=== PATIENT | male | born 1985 | race Caucasian/White ===

== ENCOUNTER 2020-09-04 10:47 | Emergency (ER) | payer OTHER ==
[~2020-09-04] VITALS: Ht 182.9 cm; Wt 74.8 kg
[2020-09-04] MEDS ORDERED: CELEXA10 MG PO (11:03)
[2020-09-04 11:18] LABS: ABSOLUTE BASOPHILS 0.1 thou/uL (0.0-0.2); ABSOLUTE LYMPHOCYTES 1.6 thou/uL (0.8-5.3); ABSOLUTE MONOCYTES 0.4 thou/uL (0.0-1.2); ABSOLUTE NEUTROPHILS 9.3 thou/uL (1.6-8.1); BASOPHILS 0.6 %; EOSINOPHILS 0.2 %; HEMATOCRIT 47.9 % (42.0-52.0); HEMOGLOBIN 16.7 gm/dL (14.0-18.0); LYMPHOCYTES 13.8 %; MCH 30.3 pg (26.0-34.0); MCHC 34.7 g/dL (28.0-37.0); MCV 87.3 fL (80.0-100.0); MONOCYTES 3.1 %; MPV 7.8 fl. (7.2-11.1); NUCLEATED RBCS 0 /100WBC; PLATELET COUNT* 240 thou/uL (150-400); POLYS 82.3 %; RBC 5.49 mil/uL (4.50-6.00); RDW-CV 13.3 % (10.5-14.5); WBC 11.3 thou/uL (4.0-11.0)
[2020-09-04 11:24] LABS: CALCIUM 9.4 mg/dL (8.5-10.1); CREATININE 1.1 mg/dL (0.6-1.3); POTASSIUM 3.8 mmol/L (3.5-5.1)
[2020-09-04 11:28] LABS: ALBUMIN 4.4 g/dL (3.4-5.0); TOTAL BILIRUBIN 0.6 mg/dL (<0.1-1.0); TOTAL PROTEIN 7.6 g/dL (6.4-8.2)
[2020-09-04] MEDS ORDERED: PROMS25 WY RECTAL (12:35)
[2020-09-04] MEDS ORDERED: ONDANSETRON HCL4 M2 PO (12:35)
[2020-09-04 12:50] VITALS: BP 141/86
--- NOTE | 2020-09-04 15:22 | EKG ---
[place] [address] ELECTROCARDIOGRAM REPORT Name: NITHIN THACKER Room: [facility]#: [id number] Admission: 09/04/20 Attend Phys: Discharge: 09/04/20 Date of : 85 Date of Service: 09/04/20 1113 Report #: [id number] THIS REPORT FOR: //name// [facility] ED Test Date: 2020-09-04 Test Time: 11:13:49 Pat Name: NITHIN THACKER Department: Room: Gender: Technical Services Specialist: CCD : 1985 Requested By: Ranulfo Chris Order Number: [id number] MD: Cecil Mccord Measurements Intervals [place] Rate: 52 P: 10 WI: 139 QRS: 57 QRSD: 117 T: 25 QT: 468 QTc: 436 Interpretive Statements Sinus bradycardia Incomplete RBBB and LAFB ST elev, probable normal early repol pattern Baseline wander in lead(s) I,III,aVL No previous ECG available for comparison Electronically Signed On 09-04-2020 15:22:15 CDT by Cecil Mccord [email or web address] <ELECTRONICALLY SIGNED> By: Cecil Mccord MD, [facility] 09/04/20 1522 1113 1113 Cecil Mccord MD, [facility] /EPI
== END 2020-09-04 12:50 | disposition home or self-care (01) ==
LOC: M.ERS 10:47
PROVIDERS: Emergency Medicine Emergency Medical Services
DX: R11.2 Nausea with vomiting, unspecified (principal); R19.7 Diarrhea, unspecified; Z79.899 Other long term (current) drug therapy